=== PATIENT | female | born 1980 | race Caucasian/White ===

== ENCOUNTER 2020-10-27 09:02 | Emergency (ER) | payer OTHER ==
[~2020-10-27] VITALS: Ht 170.2 cm; Wt 70.0 kg
--- NOTE | 2020-10-27 09:10 | PHYS DOC ---
Past History Past Medical History: Anxiety, Depression, Other (Melanie) Adult General Chief Complaint Chief Complaint: DIZZY/LIGHT HEADED HPI HPI Patient is a 40-year-old female who presents via EMS for sore throat. Patient who has history of anxiety, depression and Melanie's for which she stopped taking her levothyroxine approximately 1 year ago was at work this morning when she had subjective feelings of her throat closing. She was given x1 injection from an EpiPen prior to EMS arriving to scene with improvement in symptoms per patient. On arrival, EMS evaluated patient who is hemodynamically stable with a patent airway and oxygen saturations greater than 90% without any respiratory distress. She was subsequently transported to our facility for arrival. On arrival, patient AAO x3. She is able to speak in complete sentences. States her feelings of her "throat constricting" have been improved since receiving EpiPen, she has never had to have said intervention before. She has no history of anaphylaxis. Site she has had approximately 2 weeks of nonspecific fatigue and dizziness without any known inciting event and/or provoking stimuli. Only recent change in her health and/or home medications was starting Mucinex this morning. Denies fever, no falls, no syncope, no chest pain or shortness of breath, no cough, no abdominal pain, nausea vomit diarrhea, no urinary symptoms and/or known COVID-19 contact. Only complaint currently is being dizzy and "tired". 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 See HPI for pertinent positives and negative responses, other armando all other systems are negative, non-pertinent or non-contributory Physical Exam Physical Exam Constitutional: Pt is oriented to person, place, and time. Pt appears well-developed and well-no urished. Patient appears very anxious but nontoxic-appearing HEENT: Head: Normocephalic and atraumatic. External ears unremarkable, no rose sign Conjunctivae and EOM are normal. Pupils are equal, round, and reactive to light. Oropharynx is clear and dry, tonsils nonerythematous/nonenlarged. No edema, handling secretions without any concern for potential airway compromise No hematomas or lacerations or abrasions to face or scalp OP clear, no blood, no malocclusion, dentition intact Nares clear, no nasal septal hematoma Midface stable Neck: C-spine midline nontender, no step-offs Cardiovascular: Normal rate, regular rhythm and normal heart sounds. Pulmonary/Chest: Effort normal and breath sounds normal. No respiratory distress. No wheezes. CTA bilaterally Abdominal: Soft. Bowel sounds are normal. Pt exhibits no distension. There is no tenderness. Musculoskeletal: No bony tenderness to extremities, no deformities, full ROM extremities Chest wall stable Pelvis stable and non-tender Neurological: Pt is alert and oriented to person, place, and time. Moving all extremities willfully, able to wiggle all fingers and toes Alert and oriented x 3 Cranial nerves II through XII intact Grabbing at throat throughout entirety of physical examination, ambulatory without gait issue Sensation grossly intact Skin: Skin is warm and dry. No abrasions, no lacerations Psychiatric: Anxious affect Current Patient Data Vital Signs Vital Signs Date Time Temp Pulse Resp B/P (MAP) Pulse Ox O2 Delivery O2 Flow Rate FiO2 10/27/20 09:02 99.2 80 16 169/92 (117) 98 Room Air Lab Results Laboratory Tests Test 10/27/20 09:16 10/27/20 09:18 10/27/20 10:07 10/27/20 10:11 White Blood Count 12.1 x10^3/uL (4.0-11.0) Red Blood Count 4.59 x10^6/uL (3.50-5.40) Hemoglobin 14.3 g/dL (12.0-15.5) Hematocrit 42.9 % (36.0-47.0) Mean Corpuscular Volume 94 fL (79-100) Mean Corpuscular Hemoglobin 31 pg (25-35) Mean Corpuscular Hemoglobin Concent 33 g/dL (31-37) Red Cell Distribution Width 13.6 % (11.5-14.5) Platelet Count 368 x10^3/uL (140-400) Neutrophils (%) (Auto) 73 % (31-73) Lymphocytes (%) (Auto) 18 % (24-48) Monocytes (%) (Auto) 6 % (0-9) Eosinophils (%) (Auto) 2 % (0-3) Basophils (%) (Auto) 1 % (0-3) Neutrophils # (Auto) 8.8 x10^3uL (1.8-7.7) Lymphocytes # (Auto) 2.1 x10^3/uL (1.0-4.8) Monocytes # (Auto) 0.8 x10^3/uL (0.0-1.1) Eosinophils # (Auto) 0.2 x10^3/uL (0.0-0.7) Basophils # (Auto) 0.1 x10^3/uL (0.0-0.2) Sodium Level 138 mmol/L (136-145) Potassium Level 4.3 mmol/L (3.5-5.1) Chloride Level 104 mmol/L (98-107) Carbon Dioxide Level 25 mmol/L (21-32) Anion Gap 9 (6-14) Blood Urea Nitrogen 15 mg/dL (7-20) Creatinine 1.0 mg/dL (0.6-1.0) Estimated GFR (Cockcroft-Gault) 61.1 BUN/Creatinine Ratio 15 (6-20) Glucose Level 126 mg/dL (70-99) Calcium Level 9.0 mg/dL (8.5-10.1) Total Bilirubin 0.7 mg/dL (0.2-1.0) Aspartate Amino Transf (AST/SGOT) 11 U/L (15-37) Alanine Aminotransferase (ALT/SGPT) 23 U/L (14-59) Alkaline Phosphatase 65 U/L (46-116) Troponin I Quantitative < 0.017 ng/mL (0-0.055) Total Protein 7.3 g/dL (6.4-8.2) Albumin 3.7 g/dL (3.4-5.0) Albumin/Globulin Ratio 1.0 (1.0-1.7) Group A Streptococcus Rapid Negative (NEGATIVE) Urine Collection Type Unknown Urine Color Yellow Urine Clarity Clear Urine pH 5.0 Urine Specific [place] 1.010 Urine Protein Neg (NEG-TRACE) Urine Glucose (UA) Neg mg/dL (NEG) Urine Ketones (Stick) Neg mg/dL (NEG) Urine Blood Neg (NEG) Urine Nitrite Neg (NEG) Urine Bilirubin Neg (NEG) Urine Urobilinogen Dipstick 0.2 mg/dL (0.2 mg/dL) Urine Leukocyte Esterase Neg (NEG) Urine RBC Rare /HPF (0-2) Urine WBC Rare /HPF (0-4) Urine Squamous Epithelial Cells Few /LPF Urine Bacteria 0 /HPF (0-FEW) Urine Opiates Screen Neg (NEG) Urine Methadone Screen Neg (NEG) Urine Barbiturates Neg (NEG) Urine Phencyclidine Screen Neg (NEG) Urine Amphetamine/Methamphetamine Neg (NEG) Urine Benzodiazepines Screen Neg (NEG) Urine Cocaine Screen Neg (NEG) Urine Cannabinoids Screen Neg (NEG) Urine Ethyl Alcohol Neg (NEG) Bedside Urine HCG, Qualitative hcg negative (Negative) EKG EKG EKG ordered and interpreted by myself at 0915 hrs. as sinus rhythm at 85 bpm, unremarkable intervals, no axis deviation, no acute ischemic findings, no STEMI. No prior EKG to compare to Radiology/Procedures Radiology/Procedures XR CHEST 1V 10/27/2020 9:14 AM INDICATION: Dysphagia COMPARISON: None available TECHNIQUE: Portable frontal view of the chest is provided. FINDINGS: The cardiomediastinal silhouette is within normal limits. Lungs are clear. There is a calcified granuloma in the right upper lobe measuring 9 mm. There are no significant pleural effusions. There is no pulmonary vascular congestion. No pneumothorax. No suspicious osseous abnormality. IMPRESSION: There is no acute cardiopulmonary process. Electronically signed by: Jessie Arreguin MD (10/27/2020 9:29 AM) [id number] Heart Score HEART Score for Chest Pain: HEART Score for Chest Pain Response (Comments) Value History Slighlty/Non-Suspicious 0 ECG Normal 0 Age < 45 0 Risk Factors No Risk Factors 0 Troponin < Normal Limit 0 Total 0 Risk Factors: Risk Factors: DM, Current or recent (<one month) smoker, HTN, HLP, family history of CAD, obesity. Risk Scores: Risk Factors: DM, Current or recent (<one month) smoker, HTN, HLP, family history of CAD, obesity. Course & Med Decision Making Course & Med Decision Making ABCs unremarkable Discussed grossly benign ER work-up. Patient tolerated ER intervention well. Grossly asymptomatic. She has been monitored for greater than 2 hours without any evidence of respiratory distress and/or concern for airway compromise I disclosed etiology of patient's reported symptoms of throat closure is unknown. I have little concern given clinical presentation of decompensation prior to outpatient follow-up with PCP. I advised her to discontinue Mucinex in the meantime Patient did have findings suggestive of allergies, she is using Flonase and I advised her to start oral antihistamine such as Claritin or Zyrtec daily Discussed with the patient all findings and diagnostic testing as well as the need to follow up with PCP for further evaluation and treatment or return to the ED if any new or worsening symptoms. Strict return precautions were also d iscussed at length with good understanding by patient. Patient voiced understanding and agreement with the plan. Hemodynamically stable at time of disposition. Dragon Disclaimer Dragon Disclaimer This electronic medical record was generated, in whole or in part, using a voice recognition dictation system. Departure Departure: Impression: Primary Impression: Dysphagia Additional Impression: Person under investigation for COVID-19 Disposition: 01 DC HOME SELF CARE/HOMELESS Condition: IMPROVED Referrals: PCP,ELLIE (PCP) Patient Instructions: Dysphagia Additional Instructions: You were seen for a possible allergic reaction. It is unclear what caused your reaction. If you start to have shortness of breath, facial swelling, tongue swelling, difficulty swallowing, or any other concerning symptoms you should call 911 to return to the ED. As disclosed, I would discuss need with your primary care physician for GI referral for evaluation of esophageal stricture versus spasm. In addition, we tested you for COVID-19 but this test does not come back for 1 to 2 days. In the meantime you need to quarantine yourself at home away from all other individuals, especially those who are elderly or have any other chronic health issues or an immunocompromised status. You should return to the ED if you develop worsening cough, shortness of breath, chest pain, or any other new or concerning symptoms. Alternate Tylenol and ibuprofen as needed for body aches and pain. If your test does come back positive you need to quarantine herself for 10 days until symptom-free. You should make sure to drink plenty of fluids and get plenty of rest. Problem Qualifiers BREONNA GONZALEZ DO Oct 27, 2020 09:10
[2020-10-27] MEDS ORDERED: IV NORMAL SALINE 1,000ML 1,000 ML IV ONE (09:15)
--- NOTE | 2020-10-27 09:28 | EKG ---
[address] [address] Test Date: 2020-10-27 Test Time: 09:12:22 Pat Name: RORY REYNOSO Department: Room: Gender: F Internet Programmer: HAMLET : 1980 Requested By: BREONNA GONZALEZ Order Number: [id number] Reading MD: Measurements Intervals [place] Rate: 85 P: 53 CA: 164 QRS: 54 QRSD: 76 T: 43 QT: 344 QTc: 410 Interpretive Statements SINUS RHYTHM NORMAL ECG RI6.02 No previous ECG available for comparison
--- NOTE | 2020-10-27 09:32 | RAD ---
XR CHEST 1V 10/27/2020 9:14 AM INDICATION: Dysphagia COMPARISON: None available TECHNIQUE: Portable frontal view of the chest is provided. FINDINGS: The cardiomediastinal silhouette is within normal limits. Lungs are clear. There is a calcified granu efraín in the right upper lobe measuring 9 mm. There are no significant pleural effusions. There is no pulmonary vascular congestion. No pneumothora x. No suspicious osseous abnormality. IMPRESSION: There is no acute cardiopulmonary process. Electronically signed by: Jessie Arreguin MD (10/27/2020 9:29 AM) [id number]
[2020-10-27 09:37] LABS: BASO # 0.1 x10^3/uL (0.0-0.2); BASO % 1 % (0-3); EOS # 0.2 x10^3/uL (0.0-0.7); EOS % 2 % (0-3); HEMATOCRIT 42.9 % (36.0-47.0); HEMOGLOBIN 14.3 g/dL (12.0-15.5); LYMPH # 2.1 x10^3/uL (1.0-4.8); LYMPH % 18 % (24-48); MEAN CORPUSCULAR HEMOGLOBIN 31 pg (25-35); MEAN CORPUSCULAR HGB CONC 33 g/dL (31-37); MEAN CORPUSCULAR VOLUME 94 fL (79-100); MONO # 0.8 x10^3/uL (0.0-1.1); MONO % 6 % (0-9); NEUT # 8.8 x10^3uL (1.8-7.7); NEUT % 73 % (31-73); PLATELET COUNT 368 x10^3/uL (140-400); RED BLOOD COUNT 4.59 x10^6/uL (3.50-5.40); RED CELL DISTRIBUTION WIDTH 13.6 % (11.5-14.5); WHITE BLOOD COUNT 12.1 x10^3/uL (4.0-11.0)
[2020-10-27 09:40] LABS: GFR 61.1; POTASSIUM 4.3 mmol/L (3.5-5.1)
[2020-10-27 09:45] LABS: ALBUMIN 3.7 g/dL (3.4-5.0); TOTAL BILIRUBIN 0.7 mg/dL (0.2-1.0); TOTAL PROTEIN 7.3 g/dL (6.4-8.2)
[2020-10-27] MEDS ORDERED: MECLIZINE 12.5 MG TABLET. PO ONE (10:15)
[2020-10-27 10:28] LABS: AMPHETAMINE/METHAMPHETAMINE NEG (NEG); BARBITURATES NEG (NEG); BENZODIAZEPINES NEG (NEG); CANNABINOIDS NEG (NEG); COCAINE NEG (NEG); METHADONE NEG (NEG); OPIATES NEG (NEG); PHENCYCLIDINE NEG (NEG)
[2020-10-27 10:40] LABS: BACTERIA,URINE 0 /HPF (0-FEW); BILIRUBIN,URINE NEG (NEG); CLARITY,URINE CLEAR; COLOR,URINE YELLOW; GLUCOSE,URINE NEG (NEG); NITRITE,URINE NEG (NEG); RBC,URINE RARE /HPF (0-2); SQUAMOUS EPITHELIAL CELL,UR FEW /LPF; UROBILINOGEN,URINE 0.2 mg/dL (0.2 mg/dL); WBC,URINE RARE /HPF (0-4)
[2020-10-27 11:20] VITALS: BP 136/79
== END 2020-10-27 11:45 | disposition home or self-care (01) ==
LOC: ER 09:02
DX: R13.10 Dysphagia, unspecified (principal); F41.9 Anxiety disorder, unspecified; F32.9 Major depressive disorder, single episode, unspecified; Z20.828 Contact with and (suspected) exposure to other viral communicable diseases
CPT/HCPCS: 36415; 71045; 80053; 80307; 81001; 81025; 84443; 84484; 85025; 87070; 87880; 93005; 96360; 99285; C9803; J7030; J8597; U0003